=== PATIENT | female | born 1950 | race Caucasian/White ===

== ENCOUNTER 2020-02-13 04:56 | Emergency (ER) | payer MEDICARE, BC ==
[2020-02-13] MEDS ORDERED: Aspirin 81 MG Tab.Chew PO ONE (05:13)
[2020-02-13] MEDS ORDERED: Nitroglycerin 0.4 MG Tab.SL SL PRN (05:14)
[2020-02-13] MEDS ORDERED: Sodium Chloride 0.9% 1,000 ML IV SCH (05:15)
--- NOTE | 2020-02-13 05:40 | EDM.PDOC ---
ED HPI GENERAL MEDICAL PROBLEM - General Chief Complaint: Chest Pain Stated Complaint: CHEST PAIN Time Seen by Provider: 02/13/20 05:12 Source of Information: Reports: Patient History Limitations: Reports: No Limitations - History of Present Illness INITIAL COMMENTS - FREE TEXT/NARRATIVE: known diabetic states yesterday am woke up feeling chest /epigastric pain, pressure like . resolved gradually then this night woke her about 3am : still in the epigastrium , pressure , went back to sleeo but 4am felt same pain and she decided to come in had angioplasty as teenager no other cardiac history pt is on glymeperide , recently was told to discontinue metformin Onset: Today Duration: Hour(s):, Constant Location: Reports: Abdomen (epigastrium) Middle Chest Pain Score (Numeric/FACES): 0 - Related Data Allergies Allergy/AdvReac Type Severity Reaction Status Date / Time morphine Allergy Cannot Verified 05/25/15 10:19 Remember Home Meds: Home Meds Digoxin [Digox] 25 mg PO Q48H 05/26/15 [History] Losartan [Cozaar] 100 mg PO DAILY 05/26/15 [History] Lutein 6 mg PO BEDTIME 05/26/15 [History] Pantoprazole Sodium 40 mg PO DAILY 05/26/15 [History] Simvastatin 20 mg PO DAILY 05/26/15 [History] carvediloL [Carvedilol] 25 mg PO BID 05/26/15 [History] Chlorthalidone 25 mg DAILY 02/13/20 [History] Citalopram [Citalopram HBr] 20 mg PO DAILY 02/13/20 [History] Dicyclomine [Bentyl] 10 mg PO BID 02/13/20 [History] Glimepiride 2 mg DAILY 02/13/20 [History] amLODIPine [Norvasc] 10 mg PO DAILY 02/13/20 [History] hydrALAZINE [Apresoline] 25 mg PO BID 02/13/20 [History] Past Medical History Other Gastrointestinal History: GASTRIC ULCERS 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 Denies: Fever, Chills, Malaise, Decreased Appetite HEENT: Reports: No Symptoms Respiratory: Reports: No Symptoms. Denies: Cough, Sputum Cardiovascular: Reports: Chest Pain. Denies: Dyspnea on Exertion, Edema, Lightheadedness, Orthopnea, Palpitations Endocrine: Reports: No Symptoms, Fatigue GI/Abdominal: Reports: Abdominal Pain ( in the epigastrium). Denies: Diarrhea, Decreased Appetite, Distension, Hematochezia, Mucous in Stool, Nausea, Stool Incontinence Musculoskeletal: Reports: No Symptoms Skin: Reports: No Symptoms Neurological: Denies: Headache, Numbness, Paresthesia Psychiatric: Denies: No Symptoms Hematologic/Lymphatic: Reports: No Symptoms Immunologic: Reports: No Symptoms ED EXAM, GENERAL - Physical Exam Exam: See Below Exam Limited By: No Limitations General Appearance: Alert, WD/WN, Mild Distress (with epigastric pain) Eye Exam: Bilateral Eye: EOMI Ear Exam: Bilateral Ear: TM normal Nose: Normal Inspection, Normal Mucosa Throat/Mouth: Normal Inspection Head: Atraumatic, Normocephalic Neck: Supple, Non-Tender Respiratory/Chest: Lungs Clear, Normal Breath Sounds Cardiovascular: Regular Rate, Rhythm, No Edema, No Murmur GI/Abdominal: Soft, Non-Tender Back Exam: Normal Inspection, Full Range of Motion Extremities: Normal Inspection, No Pedal Edema Neurological: Alert, Oriented, CN II-XII Intact Psychiatric: Normal Affect, Normal Mood Skin Exam: Warm, Dry Lymphatic: No Adenopathy Course - Vital Signs Last Recorded V/S: Last Vital Signs Temp 37.1 C 02/13/20 05:00 Pulse 73 02/13/20 07:18 Resp 18 02/13/20 05:00 BP 170/57 H 02/13/20 07:23 Pulse Ox 100 02/13/20 05:00 - Orders/Labs/Meds Orders: Active Orders 24 hr Category Date Time Status EKG Documentation Completion [RC] ASDIRECTED Care 02/13/20 05:11 Active Chest 1V Frontal [CR] Stat Exams 02/13/20 05:12 Taken Losartan [Cozaar] Med 02/13/20 09:00 Active 100 mg PO DAILY Nitroglycerin [Nitrostat] Med 02/13/20 05:14 Active 0.4 mg SL Q5M PRN Sodium Chloride 0.9% [Normal Saline] 1,000 ml Med 02/13/20 05:15 Active IV ASDIRECTED hydrALAZINE [Apresoline] Med 02/13/20 07:00 Active 25 mg PO Q12H EKG 12 Lead [EK] Routine Ther 02/13/20 05:11 Ordered Medication Orders Hydralazine HCl (Apresoline) 25 mg PO Q12H [facility] Last Admin: 02/13/20 07:23 Dose: 25 mg Sodium Chloride (Normal Saline) 1,000 mls @ 75 mls/hr IV ASDIRECTED [facility] Last Admin: 02/13/20 05:55 Dose: 75 mls/hr Losartan Potassium (Cozaar) 100 mg PO DAILY [facility] Last Admin: 02/13/20 07:20 Dose: 100 mg Nitroglycerin (Nitrostat) 0.4 mg SL Q5M PRN PRN Reason: Chest Pain Last Admin: 02/13/20 05:23 Dose: 0.4 mg Labs: Laboratory Tests 02/13/20 02/13/20 02/13/20 Range/Units 05:10 05:10 05:10 WBC 8.8 (4.5-12.0) X10-3/uL RBC 4.79 (3.23-5.20) x10(6)uL Hgb 13.5 (11.5-15.5) g/dL Hct 38.5 (30.0-51.3) % MCV 80.3 (80-96) fL MCH 28.2 (27.7-33.6) pg MCHC 35.1 (32.2-35.4) g/dL RDW 11.9 (11.5-15.5) % Plt Count 241 (125-369) X10(3)uL MPV 8.2 (7.4-10.4) fL Neut % (Auto) 63.3 (46-82) % Lymph % (Auto) 24.0 (13-37) % Castro % (Auto) 9.8 (4-12) % Eos % (Auto) 2 (1.0-5.0) % Baso % (Auto) 1 (0-2) % Neut # (Auto) 5.5 (1.6-8.3) # Lymph # (Auto) 2.1 (0.6-5.0) # Castro # (Auto) 0.9 (0.0-1.3) # Eos # (Auto) 0.2 (0.0-0.8) # Baso # (Auto) 0.1 (0.0-0.2) # Sodium 139 (135-145) mmol/L Potassium 3.3 L (3.5-5.3) mmol/L Chloride 100 (100-110) mmol/L Carbon Dioxide 22 (21-32) mmol/L BUN 18 (7-18) mg/dL Creatinine 1.1 H (0.55-1.02) mg/dL Est Cr Clr Drug Dosing TNP Estimated GFR (MDRD) 50 L (>60) BUN/Creatinine Ratio 16.4 (9-20) Glucose 230 H (80-116) mg/dL Calcium 8.3 L (8.6-10.2) mg/dL Magnesium (1.8-2.5) mg/dL Total Bilirubin 0.5 (0.1-1.3) mg/dL AST 33 H (5-25) IU/L ALT 50 H (12-36) U/L Alkaline Phosphatase 90 (56-112) IU/L Troponin I 10.8 (4.0-60.3) pg/mL NT-Pro-B Natriuret Pep (<=125) pg/mL Total Protein 7.8 (6.0-8.0) g/dL Albumin 3.3 (3.2-4.6) g/dL Globulin 4.5 g/dL Albumin/Globulin Ratio 0.7 Urine Color (YELLOW) Urine Appearance (CLEAR) Urine pH (5.0-6.5) Ur Specific [place] (1.010-1.025) Urine Protein (NEGATIVE) mg/dL Urine Glucose (UA) (NORMAL) mg/dL Urine Ketones (NEGATIVE) mg/dL Urine Occult Blood (NEGATIVE) Urine Nitrite (NEGATIVE) Urine Bilirubin (NEGATIVE) Urine Urobilinogen (NEGATIVE) mg/dL Ur Leukocyte Esterase (NEGATIVE) Urine RBC (0-5) Urine WBC (0-5) Ur Squamous Epith Cells (NS,R,O) Urine Bacteria (NS) Digoxin (<0.2) ng/mL 02/13/20 02/13/20 02/13/20 Range/Units 05:10 05:10 05:10 WBC (4.5-12.0) X10-3/uL RBC (3.23-5.20) x10(6)uL Hgb (11.5-15.5) g/dL Hct (30.0-51.3) % MCV (80-96) fL MCH (27.7-33.6) pg MCHC (32.2-35.4) g/dL RDW (11.5-15.5) % Plt Count (125-369) X10(3)uL MPV (7.4-10.4) fL Neut % (Auto) (46-82) % Lymph % (Auto) (13-37) % Castro % (Auto) (4-12) % Eos % (Auto) (1.0-5.0) % Baso % (Auto) (0-2) % Neut # (Auto) (1.6-8.3) # Lymph # (Auto) (0.6-5.0) # Castro # (Auto) (0.0-1.3) # Eos # (Auto) (0.0-0.8) # Baso # (Auto) (0.0-0.2) # Sodium (135-145) mmol/L Potassium (3.5-5.3) mmol/L Chloride (100-110) mmol/L Carbon Dioxide (21-32) mmol/L BUN (7-18) mg/dL Creatinine (0.55-1.02) mg/dL Est Cr Clr Drug Dosing Estimated GFR (MDRD) (>60) BUN/Creatinine Ratio (9-20) Glucose (80-116) mg/dL Calcium (8.6-10.2) mg/dL Magnesium 1.7 L (1.8-2.5) mg/dL Total Bilirubin (0.1-1.3) mg/dL AST (5-25) IU/L ALT (12-36) U/L Alkaline Phosphatase (56-112) IU/L Troponin I (4.0-60.3) pg/mL NT-Pro-B Natriuret Pep 200 H (<=125) pg/mL Total Protein (6.0-8.0) g/dL Albumin (3.2-4.6) g/dL Globulin g/dL Albumin/Globulin Ratio Urine Color (YELLOW) Urine Appearance (CLEAR) Urine pH (5.0-6.5) Ur Specific [place] (1.010-1.025) Urine Protein (NEGATIVE) mg/dL Urine Glucose (UA) (NORMAL) mg/dL Urine Ketones (NEGATIVE) mg/dL Urine Occult Blood (NEGATIVE) Urine Nitrite (NEGATIVE) Urine Bilirubin (NEGATIVE) Urine Urobilinogen (NEGATIVE) mg/dL Ur Leukocyte Esterase (NEGATIVE) Urine RBC (0-5) Urine WBC (0-5) Ur Squamous Epith Cells (NS,R,O) Urine Bacteria (NS) Digoxin 0.8 L (<0.2) ng/mL 02/13/20 02/13/20 Range/Units 08:25 08:30 WBC (4.5-12.0) X10-3/uL RBC (3.23-5.20) x10(6)uL Hgb (11.5-15.5) g/dL Hct (30.0-51.3) % MCV (80-96) fL MCH (27.7-33.6) pg MCHC (32.2-35.4) g/dL RDW (11.5-15.5) % Plt Count (125-369) X10(3)uL MPV (7.4-10.4) fL Neut % (Auto) (46-82) % Lymph % (Auto) (13-37) % Castro % (Auto) (4-12) % Eos % (Auto) (1.0-5.0) % Baso % (Auto) (0-2) % Neut # (Auto) (1.6-8.3) # Lymph # (Auto) (0.6-5.0) # Castro # (Auto) (0.0-1.3) # Eos # (Auto) (0.0-0.8) # Baso # (Auto) (0.0-0.2) # Sodium (135-145) mmol/L Potassium (3.5-5.3) mmol/L Chloride (100-110) mmol/L Carbon Dioxide (21-32) mmol/L BUN (7-18) mg/dL Creatinine (0.55-1.02) mg/dL Est Cr Clr Drug Dosing Estimated GFR (MDRD) (>60) BUN/Creatinine Ratio (9-20) Glucose (80-116) mg/dL Calcium (8.6-10.2) mg/dL Magnesium (1.8-2.5) mg/dL Total Bilirubin (0.1-1.3) mg/dL AST (5-25) IU/L ALT (12-36) U/L Alkaline Phosphatase (56-112) IU/L Troponin I 10.7 (4.0-60.3) pg/mL NT-Pro-B Natriuret Pep (<=125) pg/mL Total Protein (6.0-8.0) g/dL Albumin (3.2-4.6) g/dL Globulin g/dL Albumin/Globulin Ratio Urine Color Yellow (YELLOW) Urine Appearance Clear (CLEAR) Urine pH 5.0 (5.0-6.5) Ur Specific [place] 1.015 (1.010-1.025) Urine Protein Trace (NEGATIVE) mg/dL Urine Glucose (UA) 50 H (NORMAL) mg/dL Urine Ketones Negative (NEGATIVE) mg/dL Urine Occult Blood Negative (NEGATIVE) Urine Nitrite Negative (NEGATIVE) Urine Bilirubin Negative (NEGATIVE) Urine Urobilinogen Normal (NEGATIVE) mg/dL Ur Leukocyte Esterase Negative (NEGATIVE) Urine RBC 0-5 (0-5) Urine WBC 0-5 (0-5) Ur Squamous Epith Cells Few H (NS,R,O) Urine Bacteria Rare H (NS) Digoxin (<0.2) ng/mL Meds: Medications Generic Name Dose Route Start Last Admin Trade Name Freq PRN Reason Stop Dose Admin Hydralazine HCl 25 mg 02/13/20 07:00 02/13/20 07:23 Apresoline PO 25 mg Q12H RAD Administration Sodium Chloride 1,000 mls @ 75 mls/hr 02/13/20 05:15 02/13/20 05:55 Normal Saline IV 75 mls/hr ASDIRECTED [facility] Administration Losartan Potassium 100 mg 02/13/20 09:00 02/13/20 07:20 Cozaar PO 100 mg DAILY [facility] Administration Nitroglycerin 0.4 mg 02/13/20 05:14 02/13/20 05:23 Nitrostat SL 0.4 mg Q5M PRN Administration Chest Pain Discontinued Medications Generic Name Dose Route Start Last Admin Trade Name Freq PRN Reason Stop Dose Admin Amlodipine Besylate 10 mg 02/13/20 06:48 02/13/20 07:12 Norvasc PO 02/13/20 06:49 10 mg ONETIME ONE Administration Aspirin 324 mg 02/13/20 05:13 02/13/20 05:05 Aspirin PO 02/13/20 05:14 324 mg ONETIME ONE Administration Carvedilol 25 mg 02/13/20 06:50 02/13/20 07:13 Coreg PO 02/13/20 06:51 25 mg ONETIME ONE Administration Digoxin 250 mcg 02/13/20 06:22 02/13/20 07:17 Lanoxin PO 02/13/20 06:23 Not Given ONETIME ONE Digoxin Confirm 02/13/20 07:02 02/13/20 07:17 Lanoxin Administered 02/13/20 07:03 Not Given Dose 250 mcg .ROUTE .STK-MED ONE Digoxin 250 mcg 02/13/20 07:15 02/13/20 07:18 Lanoxin PO 02/13/20 07:16 250 mcg ONETIME ONE Administration Losartan Potassium 100 mg 02/13/20 07:00 02/13/20 07:23 Cozaar PO Not Given DAILY RAD Losartan Potassium Confirm 02/13/20 07:03 02/13/20 07:16 Cozaar Administered 02/13/20 07:04 Not Given Dose 100 mg .ROUTE .STK-MED ONE Magnesium Oxide 400 mg 02/13/20 06:14 02/13/20 07:12 Magnesium Oxide PO 02/13/20 06:15 400 mg ONETIME ONE Administration Potassium Chloride 40 meq 02/13/20 06:09 02/13/20 07:12 Klor-Con M20 PO 02/13/20 06:10 40 meq ONETIME ONE Administration - Re-Assessments/Exams Free Text/Narrative Re-Assessment/Exam: 02/13/20 06:[address] depression , pt given SL NTG 0.4mg and pain resolved noted to have low K and Mag , will supplement Digoxin level subtherapeutic also will supplement will need repeat troponin 02/13/20 09:00 pt had repeat troponin : negative Noted to have increased chest pressure with elevated BP above 160systolic , discussed need to monitor same at home symptoms have resolved , pt will FU with PCP Departure - Departure Time of Disposition: 09:00 Disposition: Home, Self-Care 01 Condition: Fair Clinical Impression: Atypical chest pain, Hypertension associated with diabetes, Hypokalemia, Hypomagnesemia, Serum medication level outside reference range, Type 2 diabetes mellitus Instructions: Nonspecific Chest Pain, Adult, [id number], Hypomagnesemia Forms: ED Department Discharge Additional Instructions: 1) Make appt to follow up with your PCP in 2-3 days 2) Check BP at least 2 times a day , in am ( when you wake up _ and evening before dinner 3) continue with all medications as prescribed till you see your PCP : no changes 4) Call with any concerns Sepsis Event Note - Evaluation Sepsis Screening Result: No Definite Risk - Focused Exam Vital Signs: Vital Signs Temp Pulse Pulse Resp BP BP Pulse Ox 02/13/20 07:23 170/57 H 02/13/20 07:20 170/57 H 02/13/20 07:18 73 02/13/20 07:13 73 170/57 H 02/13/20 07:12 170/57 H 02/13/20 05:23 137/56 L 02/13/20 05:00 37.1 C 82 18 173/62 H 100 Date Exam was Performed: 02/13/20 Time Exam was Performed: 08:55 - My Orders Last 24 Hours: My Active Orders 02/13/20 05:11 EKG Documentation Completion [RC] ASDIRECTED EKG 12 Lead [EK] Routine 02/13/20 05:12 Chest 1V Frontal [CR] Stat 02/13/20 05:14 Nitroglycerin [Nitrostat] 0.4 mg SL Q5M PRN 02/13/20 05:15 Sodium Chloride 0.9% [Normal Saline] 1,000 ml IV ASDIRECTED 02/13/20 07:00 hydrALAZINE [Apresoline] 25 mg PO Q12H 02/13/20 09:00 Losartan [Cozaar] 100 mg PO DAILY - Assessment/Plan Last 24 Hours: My Active Orders 02/13/20 05:11 EKG Documentation Completion [RC] ASDIRECTED EKG 12 Lead [EK] Routine 02/13/20 05:12 Chest 1V Frontal [CR] Stat 02/13/20 05:14 Nitroglycerin [Nitrostat] 0.4 mg SL Q5M PRN 02/13/20 05:15 Sodium Chloride 0.9% [Normal Saline] 1,000 ml IV ASDIRECTED 02/13/20 07:00 hydrALAZINE [Apresoline] 25 mg PO Q12H 02/13/20 09:00 Losartan [Cozaar] 100 mg PO DAILY
[2020-02-13] MEDS ORDERED: Potassium Chloride 20 MEQ Tab.ER PO ONE (06:09)
[2020-02-13] MEDS ORDERED: Magnesium Oxide 400 MG Tab PO ONE (06:14)
[2020-02-13] MEDS ORDERED: Digoxin 250 MCG Tab PO ONE (06:22)
[2020-02-13] MEDS ORDERED: amLODIPine 5 MG Tab PO ONE (06:48)
[2020-02-13] MEDS ORDERED: Carvedilol 25 MG Tab PO ONE (06:50)
[2020-02-13] MEDS ORDERED: hydrALAZINE 25 MG Tab PO SCH (07:00)
[2020-02-13] MEDS ORDERED: Losartan 100 MG Tab PO SCH (07:00)
[2020-02-13] MEDS ORDERED: Digoxin 125 MCG Tab ONE (07:02)
[2020-02-13] MEDS ORDERED: Losartan 50 MG Tab ONE (07:03)
[2020-02-13] MEDS ORDERED: Digoxin 125 MCG Tab PO ONE (07:15)
[2020-02-13 07:16] VITALS: PULSE 73
[2020-02-13] MEDS ORDERED: Losartan 50 MG Tab PO SCH (09:00)
[2020-02-13 09:40] VITALS: BP 160/48
--- NOTE | 2020-02-13 10:31 | CR ---
INDICATION: Chest pain. CHEST, ONE VIEW: AP upright view of the chest 02/13/20 - no comparisons. The heart does not appear enlarged. Overlying EKG leads are noted. The aorta is slightly tortuous with calcification minimally in the arch. An active infiltrate or effusion was not identified. IMPRESSION: No acute process. MTDD
== END 2020-02-13 09:10 | disposition home or self-care (01) ==
LOC: FB.ED 04:56
DX: R07.89 Other chest pain (principal); I10 Essential (primary) hypertension; E11.9 Type 2 diabetes mellitus without complications; E87.6 Hypokalemia; E83.42 Hypomagnesemia; Z79.899 Other long term (current) drug therapy; Z88.5 Allergy status to narcotic agent; Z79.84 Long term (current) use of oral hypoglycemic drugs
CPT/HCPCS: 36415; 71045; 80053; 80162; 81001; 83735; 83880; 84484; 85025; 93005; 96360; 96361; 99285; A9270; J7030